=== PATIENT | female | born 1975 | race Caucasian/White ===

== ENCOUNTER → 2018-11-11 | Outpatient (CLI) | payer OTHER ==
[~2018-11-11] MED LIST: LISI-167 PO; MONT10TA6 PO; SUMA25TA4 PO; [UNRECOGNIZED DRUG - REMARK] NS
[2018-11-11 12:06] LABS: ALANINE AMINOTRANSFERASE 21 U/L (12-78); ALBUMIN 4.7 g/dL (3.4-5.0); ANION GAP 6 mmol/L (5-15); CALCIUM 9.1 mg/dL (8.5-10.1); CHLORIDE 108 mmol/L (98-107); CREATININE 0.85 mg/dL (0.55-1.02)
[2018-11-11 12:11] LABS: ALKALINE PHOSPHATASE 43 U/L (45-117); BILIRUBIN,TOTAL 0.5 mg/dL (0.2-1.0); TOTAL PROTEIN 7.6 g/dL (6.4-8.2)
== END | disposition home or self-care (01) ==
LOC: STAR 10:48
PROVIDERS: ATTEND Specialist
DX: Z01.818 Encounter for other preprocedural examination (principal); R87.619 Unspecified abnormal cytological findings in specimens from cervix uteri
CPT/HCPCS: 36415; 80053

== ENCOUNTER 2018-11-18 10:06 | Inpatient (IN) | payer OTHER ==
[~2018-11-18] VITALS: Ht 157.5 cm; Wt 48.9 kg
[2018-11-18] MEDS ORDERED: LACTATED RINGERS 1,000 ML IV SCH (10:31)
[2018-11-18] MEDS ORDERED: FLUT9.9S INH (10:42)
[2018-11-18] MEDS ORDERED: EPINEPHRINE 1 MG/ML, 1ML ONE (10:54)
[2018-11-18] MEDS ORDERED: BUPIVACAINE/PF 0.25% ONE (10:54)
[2018-11-18] MEDS ORDERED: FLUORESCEIN SODIUM 500 MG/5 ML ONE (10:54)
[2018-11-18 10:56] LABS: HCG UR SG 1.024 (1.003-1.030); MICROSCOPIC AUTO
[2018-11-18 10:58] LABS: CULTURE INDICATED? YES
[2018-11-18] MEDS ORDERED: LIDOCAINE-MPF 1%, 2ML INFIL ONE (11:00)
[2018-11-18] MEDS ORDERED: FENTANYL PF 250 MCG/5ML ONE (11:54)
[2018-11-18] MEDS ORDERED: MIDAZOLAM 1 MG/ML, 2ML ONE (11:54)
[2018-11-18] MEDS ORDERED: ACETAMINOPHEN 500 MG TABLET PO ONE (12:00)
[2018-11-18] MEDS ORDERED: SCOPOLAMINE PATCH, 1.5MG PATCH.TD72 TD ONE (12:00)
[2018-11-18] MEDS ORDERED: DIAZEPAM 5 MG TABLET PO ONE (12:00)
[2018-11-18] MEDS ORDERED: SUCCINYLCHOLINE 20 MG/ML, 10ML ONE (12:32)
[2018-11-18] MEDS ORDERED: GLYCOPYRROLATE 0.2MG/1ML, 5ML ONE (12:32)
[2018-11-18] MEDS ORDERED: ROCURONIUM 10MG/ML,5ML ONE (12:32)
[2018-11-18] MEDS ORDERED: PROPOFOL 50 ML ONE (12:32)
[2018-11-18] MEDS ORDERED: NEOSTIGMINE 1 MG/ML, 10ML ONE (12:32)
[2018-11-18] MEDS ORDERED: ONDANSETRON 2MG/ML, 2ML ONE (12:32)
[2018-11-18] MEDS ORDERED: CEFAZOLIN 1,000 MG ONE (12:32)
[2018-11-18] MEDS ORDERED: DEXAMETHASONE 4 MG/ML, 1ML ONE (12:32)
[2018-11-18] MEDS ORDERED: PROPOFOL 10 MG/ML, 20ML ONE (12:32)
[2018-11-18] MEDS ORDERED: LIDOCAINE-MPF 2% ,5ML ONE (12:48)
[2018-11-18] MEDS ORDERED: hydrALAzine 20 MG/ML, 1ML IV PRN (13:00)
[2018-11-18] MEDS ORDERED: ONDANSETRON ODT 8 MG PO PRN (13:00)
[2018-11-18] MEDS ORDERED: LABETALOL 5MG/ML, 20ML IV PRN (13:00)
[2018-11-18] MEDS ORDERED: ONDANSETRON 2MG/ML, 2ML IV PRN ×2 (13:00→17:00)
[2018-11-18] MEDS ORDERED: LORazepam 2 MG/ML, 1ML IVPush PRN (13:00)
[2018-11-18] MEDS ORDERED: DIAZEPAM 5 MG/ML, 2ML IVPush PRN (13:00)
[2018-11-18] MEDS ORDERED: PROMETHAZINE 25 MG/ML, 1ML IV PRN (13:00)
[2018-11-18] MEDS ORDERED: OXYcodone 5 MG/5 ML ORAL.SOL UDC PO PRN (13:00)
[2018-11-18] MEDS ORDERED: FENTANYL PF 100 MCG/2ML ONE ×2 (13:16→14:11)
[2018-11-18] MEDS ORDERED: SUGAMMADEX 200 MG/2 ML IVPush ONE (13:54)
[2018-11-18] MEDS ORDERED: KETOROLAC 30 MG/1 ML ONE ×2 (13:54)
[2018-11-18] MEDS ORDERED: OXYcodone 5 MG/5 ML ORAL.SOL UDC ONE (14:11)
[2018-11-18] MEDS: FENTANYL PF 100 MCG/2ML IV PRN ×2 (14:13→14:24)
[2018-11-18] MEDS ORDERED: HYDROmorphone 2 MG/ML, 1ML ONE (14:32)
[2018-11-18] MEDS: HYDROmorphone 2 MG/ML, 1ML IVPush PRN ×3 (14:45→15:18)
[2018-11-18] MEDS: D5%-LACTATED RINGERS 1,000 ML IV SCH (16:01)
[2018-11-18 16:24] VITALS: BP 98/62
[2018-11-18] MEDS ORDERED: KETOROLAC 30 MG/1 ML IV SCH (17:00)
[2018-11-18] MEDS ORDERED: HYDROmorphone 2 MG/ML, 1ML IV PRN (17:00)
[2018-11-18] MEDS ORDERED: MEPERIDINE/PF 50 MG/ML ONE (17:48)
[2018-11-18] MEDS: MEPERIDINE/PF 100 MG/ML IM PRN (17:52)
[2018-11-18 20:00] VITALS: BP 91/59
[2018-11-18] MEDS ORDERED: CEFAZOLIN PMX 1GM/50ML 50 ML IVPB ONE (20:00)
[2018-11-18] MEDS: KETOROLAC 30 MG/1 ML IV SCH (20:13)
[2018-11-18] MEDS: OXYcodone 5 MG/5 ML ORAL.SOL UDC PO PRN (20:30)
[2018-11-18] MEDS ORDERED: ZOLPIDEM 5MG TABLET PO PRN (21:00)
[2018-11-19] MEDS: D5%-LACTATED RINGERS 1,000 ML IV SCH ×3 (00:14→16:01)
[2018-11-19] MEDS: OXYcodone 5 MG/5 ML ORAL.SOL UDC PO PRN ×5 (00:14→16:53)
[2018-11-19] MEDS ORDERED: MEPERIDINE/PF 50 MG/ML ONE (01:26)
[2018-11-19] MEDS: MEPERIDINE/PF 100 MG/ML IM PRN (01:31)
[2018-11-19 01:40] VITALS: BP 132/83
[2018-11-19] MEDS: KETOROLAC 30 MG/1 ML IV SCH ×3 (02:19→15:29)
[2018-11-19 05:00] VITALS: BP 107/66
[2018-11-19 07:55] VITALS: BP 101/66
[2018-11-19] MEDS ORDERED: IBUP-1222 PO (10:38)
[2018-11-19] MEDS ORDERED: [UNRECOGNIZED DRUG - OTHER] (10:40)
[2018-11-19] MEDS ORDERED: OXYC10TA6 PO (10:41)
[2018-11-19] MEDS ORDERED: HYDROmorphone 2 MG/ML, 1ML ONE (11:40)
[2018-11-19 14:30] VITALS: BP 127/85
== END 2018-11-19 19:03 | disposition home or self-care (01) | DRG 743 ==
LOC: OUT 10:06 → 2NW 16:00 → OUT 17:01
PROVIDERS: ADMIT Specialist; ATTEND Specialist
PROC: 0UB77ZZ Excision of Bilateral Fallopian Tubes, Via Natural or Artificial Opening (ICD-10-PCS; 2018-11-18)
PROC: 0UT97ZZ Resection of Uterus, Via Natural or Artificial Opening (ICD-10-PCS; principal; 2018-11-18 12:30)
DX: N80.0 Endometriosis of uterus (principal); N94.6 Dysmenorrhea, unspecified; I10 Essential (primary) hypertension
CPT/HCPCS: 36415; J3490; J7121; 81001; 81025; 85014; 85018; 87086; 88307; G0378; J0171; J0690; J1100; J1170; J1885; J2250; J2405; J2704; J2710; J3010; J0330; J2175; J7120